=== PATIENT | female | born 1995 | race Caucasian/White ===

== ENCOUNTER 2016-06-02 06:00 | Inpatient (IN) ==
[2016-06-02] MEDS ORDERED: Metoclopramide 10 MG/2 ML VIAL IVP PRN (06:02)
[2016-06-02] MEDS ORDERED: Famotidine 20 MG/2 ML VIAL IVP PRN (06:02)
[2016-06-02] MEDS ORDERED: Naloxone 0.4 MG/ML INJ IVP PRN ×2 (06:02→22:07)
[2016-06-02] MEDS ORDERED: miSOPROStol 25 MCG TABLET VG PRN (06:02)
[2016-06-02] MEDS ORDERED: D5% in 0.45% NACL 1,000 ML IVC SCH (06:15)
[2016-06-02 07:28] LABS: Basophils % 0.3 %; Eosinophils # 0.1 K/mcL (0.0-0.6); Eosinophils % 0.5 %; Hematocrit 39.6 % (35.3-44.9); Hemoglobin 13.1 g/dL (11.5-15.4); Immature Granulocytes % 0.9 % (0-4); Lymphocytes # 2.4 K/mcL (0.6-4.6); Lymphocytes % 22.6 %; Mean Corpuscular HGB Conc 33.1 g/dL (31.6-35.5); Mean Corpuscular Hemoglobin 29.6 pg (28.0-33.3); Mean Corpuscular Volume 89.6 fL (83.0-100.0); Monocytes # 0.8 K/mcL (0.0-1.3); Monocytes % 7.5 %; Neutrophils # 7.2 K/mcL (1.6-8.9); Platelet Count 252 K/mcL (140-400); Red Blood Count 4.42 M/mcL (3.82-4.97); Red Cell Distribution Width 14.3 % (11.5-14.5); Segmented Neutrophils % 68.2 %
[2016-06-02] MEDS ORDERED: Ringers Solution, Lactated 1,000 ML ONE ×4 (08:13→19:08)
--- NOTE | 2016-06-02 08:44 | OB/GYN History & Physical ---
Date of Encounter: 06/02/16 Time of Encounter: 08:42 Assessment and Plan (1) 39 weeks gestation of Current visit: Yes Status: Acute IOL Cytotec 25mcg vaginally (2) Maternal varicella, non-immune Current visit: Yes Status: Acute Mother encouraged to repeat vaccine when appropriate History of Present Illness Chief complaint: Schedule IOL for gestational age greater than 39 weeks HPI: Ms. Odell is a 20 year old female 20 y/o at 39w1d presented to labor and delivery for scheduled IOL for gestational age greater than [address] Contreras. Cytotec 25mcg vaginally was placed per RN at 0641. Patient reports +FM and feeling irregular contractions. Denies LOF or VB. Blood type: A+, Rubella: Immune, Hep B: nonreactive, Varicella: Negative. GBS: negative Past Med Surg Social Fam HX - Past Medical History Medical history: no medical history Psychiatric history: no psych history - Social History Smoking Status: Never smoker Smokeless Tobacco Status: No Alcohol use: none Drug use: none - Family History Mother Living Status: Still Living Hx Family Cardiac Disorders: No Hx Family Respiratory Disorders: No Hx Family Cancer: No Hx Family GI Disorders: No Hx Family Genitourinary Disorders: No Hx Family Endocrine Disorder: No Hx Family Musculoskeletal Disorders: No Hx Family Neuromuscular Disorders: No Hx Family Neurologic Disorders: No Hx Family HEENT Disorders: No Hx Family Autoimmune Disorders: No Hx Family Reproductive Disorders: No Hx Family Psychosocial Disorders: No Hx Family Medical Disorders: No Obstetrical History - Pregnancies : 1 Para: 0 Term: 0 : 0 Ab's: 0 Livin Medications and Allergies Vit/Iron Fumarate/FA [ Tablet] 1 each PO DAILY 06/02/16 [ History] Allergies No Known Allergies Allergy (Verified 06/02/16 06:15) Review of System OB - Constitutional Constitutional ROS IM: no chills, no fever(s), no headache(s) - Cardiovascular Cardiovascular: pedal edema, no chest pain, no dyspnea, no leg edema, no lightheadedness, no palpitations, no syncope - Gastrointestinal Gastrointestinal: no abdominal pain, no constipation, no heartburn, no nausea, no vomiting - Genitourinary Genitourinary: no difficulty urinating, no dysuria, no flank pain, no urinary frequency, no vaginal discharge, no vaginal odor, no vaginal pruritis Exam - Constitutional Constitutional: well developed, well nourished, no acute distress, average body habitus - HEENT HEENT: Normocephaly, Mucus Membranes Moist - Neck Neck exam: full ROM, supple - Lungs Respiratory exam: CTAB - Cardiovascular Cardiovascular exam: RRR, +S1, +S2 - Abdomen Abdomen: Present: bowel sounds normal, gravid, non tender - Extremities Extremities exam: full ROM, normal capillary refill, normal inspection, pedal edema (1+ bilateral) Deep Tendon Reflex Grade: 2+ Normal - Cervix Dilation: 3 (Per Induction conset) Effacement: 60 Station: -1 - Comments Comments: FHR 125 bpm moderate variability +15x15 accels, contractions irregular. Results Result Diagrams: 06/02/16 06:35 Abnormal lab results MPV 9.0 fL (9.4-12.4) L 06/02/16 06:35 All other labs normal. - VTE Reasons for not Prescribing Prophylaxis: Treatment not Indicated - Low risk for VTE
--- NOTE | 2016-06-02 10:26 | OB Labor Progress Note ---
Date of Encounter: 06/02/16 Time of Encounter: 10:24 Labor Progress Note - Subjective Subjective: Patient resting in bed. Discussed POC with patient. Patient denies any questions or concerns. - Cervix Cervix: 4.5/90/-1 - Heart Tones Heart Tones: 135 bpm moderate variability +15x15 accels no decels noted. CAt. 1 tracing. - [place]: irregular - Interventions Interventions: SVE, AROM small amount of clear fluid. FSE placed due to difficulty monitoring baby. - Plan Plan: Continue labor management Epidural of nubain when desires for pain management Will start pitocin if needed for effective labor pattern.
[2016-06-02] MEDS ORDERED: EPHEDrine 50 MG/ML VIAL IVP PRN (10:27)
[2016-06-02] MEDS ORDERED: Ringers Solution, Lactated 500 ML IVC ONE (10:27)
[2016-06-02] MEDS ORDERED: Epidural Premix (fent/bupiv) 110 ML EP SCH (10:30)
[2016-06-02] MEDS ORDERED: Epidural Premix (fent/bupiv) 110 ML EP ONE ×3 (10:31→19:59)
--- NOTE | 2016-06-02 11:12 | Anesthesia Evaluation PreOp ---
Date of Encounter: 06/02/16 Time of Encounter: 11:10 - Past History Planned Operation: RM Cardiac History: Denies any Significant Hx Pulmonary History: Denies Any Significant HX LOGISTICS INTERN History: Denies Any Significant HX Other Medical History: Denies Any Significant HX Anesthesia History: No Prior Anesthetic Complications, Past Anesthesia : Yes Alcohol Use: none Drug use: none Medications and Allergies Vit/Iron Fumarate/FA [ Tablet] 1 each PO DAILY 06/02/16 [ History] Allergies No Known Allergies Allergy (Verified 06/02/16 06:15) - Meds/Allergy Pre-op Review Medications Reviewed: Yes Allergies Reviewed: Yes Beta Blockers on Current Med List: No Anesthesia Results - Labs 06/02/16 06:35 Anesthesia Exam Height: 5'1" Weight: 104kg NPO (# of Hours): 8 Pain Scale: 8 Pain Scale Used: Numeric (1 - 10) - HEENT Pupil (Motor): Pupils equal Mallampati: II Teeth: Normal Oral Opening: Greater than 3 - LOGISTICS INTERN LOC: Oriented LOGISTICS INTERN Motor: Normal RUE, Normal LUE, Normal RLE, Normal LLE, Normal Face LOGISTICS INTERN Sensory: Normal: RUE, LUE, RLE, LLE, Face - Cardiac Rhythm: Regular Murmur: None JVD: No Carotid Bruit: No - Pulmonary Breath Sounds: bilateral Clear Respiratory Effort: Symmetrical Anesthesia Assess/Plan ASA Score: 3 Modified Shahab Scale for Level of Consciousness: Cooperative, oriented, and tranquil Anesthetic Plan: General (plan b), Regional (plan a) Autologous Blood: Yes Monitoring Plan: Standard Monitors
--- NOTE | 2016-06-02 11:14 | Anesthesia Procedures ---
Date of Encounter: 06/02/16 Time of Encounter: 11:12 Procedures: Anesthesia - Epidural/Spinal Patient ID/Chart reviewed: Yes Patient examined: Yes OB Eval: Gestational age: 39.1 OB Eval: : 1 OB Eval: Hx Para: 0 OB Eval: Dilated at (cm): 5 OB Eval: Contractions: Non-stressed pattern Consent Obtained: No Supplemental Oxygen: None/Room Air Site Prep: Aseptic Technique, Sterile prep and drape, Povidone-Iodine 1% Patient position: upright Local Anesthetic: Lidocaine 1% Amount of Local Anesthetic used: 3 Touhy Needle Gauge: 18 Touhy Needle Depth (cm): 10 Catheter Depth at Skin (cm): 20 Test Dose (1.5% Lido + Epi): Volume given (mls): 5 Test Dose Result: Negative Loading Dose: Other: 5ml premix pharm bag solution Loading Dose Administered: Thru Catheter Infusion Med: 0.125% Bupivacaine w/ 2 mcg/ml Fentanyl Infusion Rate (mls/hr): 12 ([id number] [id number]) Catheter Secured in Place: Tegaderm, Tape Interspace Used: L3-L4 Loss of Resistance (BELA): Yes Blood: No CSF: No Paresthesia: No Procedure: pt tolerated procedure well. no complications. vss. fhr stable. 140/65 hr 80 134/64 hr 90 fhr 129, 130, 131
[2016-06-02] MEDS ORDERED: Oxytocin 20 units/ LR 1000 mL 20 UNIT/1,000 ML BAG IVC SCH (11:15)
--- NOTE | 2016-06-02 12:45 | Anesthesia Progress Note ---
Date of Encounter: 06/02/16 Time of Encounter: 12:43 Anesthesia Note - Note Note: 06/02/16 12:43 pt seen and evaluated post epidural pump start. increased pain on the left side with contractions. pt turned to the left side. rate increased to 14ml/hr and bolus dose increased to 4ml q15min pcea. pt comfortable at this time.
[2016-06-02] MEDS ORDERED: Lidocaine/EPI 1:200k 2% PF 20 ML VIAL ONE (15:02)
[2016-06-02] MEDS ORDERED: *HR* FentaNYL (PF) 100 MCG/2 ML VIAL ONE ×2 (15:02→16:58)
--- NOTE | 2016-06-02 15:13 | Anesthesia Progress Note ---
Date of Encounter: 06/02/16 Time of Encounter: 15:12 Anesthesia Note - Note Note: 06/02/16 15:12 called for increased pain during contractions. pump increased to 18ml/hr. 8ml 2 % lidocaine with epi given with 100mcg fentanyl.
--- NOTE | 2016-06-02 15:59 | OB Labor Progress Note ---
Date of Encounter: 06/02/16 Time of Encounter: 15:56 Labor Progress Note - Subjective Subjective: Patient resting reports mild low back pain and pressure. Bradford catheter draining clear yellow urine. - Cervix Cervix: 7/90/-1 - Heart Tones Heart Tones: 135 bpm moderate variability +15x15 accels variables noted prior to SVE and repositioning. - [place]: 2-3 min apart - Interventions Interventions: SVE, Repositioning - Plan Plan: Continue labor management.
--- NOTE | 2016-06-02 17:07 | Anesthesia Progress Note ---
Date of Encounter: 06/02/16 Time of Encounter: 17:04 Anesthesia Note - Note Note: 06/02/16 17:04 called for increased pain with contractions. rate increased to 20ml/hr. 5ml q 10min pcea. vss. fhr stable. bolus given 7ml 2%lidocaine with epi. 100mcg fentanyl. 06/02/16 17:07
--- NOTE | 2016-06-02 17:35 | OB Labor Progress Note ---
Date of Encounter: 06/02/16 Time of Encounter: 17:33 Labor Progress Note - Subjective Subjective: Patient vomiting, FHR decel noted on monitor. Patient denies any pain just feels nauseated. - Cervix Cervix: 9.5/100/0 - Heart Tones Heart Tones: 140 bpm moderate variability prolonged decels noted + scalp stimulation with SVE - [place]: 2-3.5 min apart - Interventions Interventions: SVE, repositioned. Pitocin off, O2 mask applied at 10 liters. - Plan Plan: Continue labor management.
[2016-06-02] MEDS ORDERED: Famotidine 20 MG/2 ML VIAL IVP ONE (21:18)
[2016-06-02] MEDS ORDERED: Metoclopramide 10 MG/2 ML VIAL IVP ONE (21:18)
[2016-06-02] MEDS ORDERED: CeFAZolin Pre 3,000 MG/100 ML 3,000 MG/100 ML BAG IVPB ONE (21:18)
[2016-06-02] MEDS ORDERED: Chloroprocaine/PF 20 ML VIAL INFILT ONE (21:21)
[2016-06-02] MEDS ORDERED: *HR* Succinylcholine 200 MG/10 ML VIAL IVP ONE (21:24)
[2016-06-02] MEDS ORDERED: *HR* Oxytocin 10 UNIT/ML VIAL IM ONE (21:27)
[2016-06-02] MEDS ORDERED: Ringers Solution, Lactated 1,000 ML IVC SCH (21:30)
[2016-06-02] MEDS ORDERED: Ondansetron 4 MG/2 ML VIAL ONE (21:54)
[2016-06-02] MEDS ORDERED: *HR* HYDROmorphone (PF) 1 MG/ML SYRINGE ONE (21:54)
[2016-06-02] MEDS ORDERED: Dexamethasone 4 MG/ML VIAL ONE (21:54)
[2016-06-02] MEDS ORDERED: Ondansetron 4 MG/2 ML VIAL IVP ONE (22:07)
[2016-06-02] MEDS ORDERED: *HR* Meperidine 50 MG/ML SYRINGE IVP PRN (22:07)
[2016-06-02] MEDS ORDERED: *HR* Labetalol 100 MG/20 ML MDV IVP PRN (22:07)
[2016-06-02] MEDS ORDERED: Albuterol 2.5 MG/3 ML NEBULIZER IH ONE (22:07)
[2016-06-02] MEDS ORDERED: *HR* Labetalol 20 MG/4 ML SYRINGE IVP PRN (22:15)
--- NOTE | 2016-06-02 22:29 | OB/GYN Procedure Note ---
Section - Date of procedure: 06/02/16 Preop diagnosis: arrest of descent, category 2 FHT tracing Post-op diagnosis: same Procedure: primary low transverse Surgeon: Gracie Contreras Estimated blood loss (cc): 500 Anesthesiologist: Maria Eugenia Carvajal Client Relationship Manager: Peterson Smith Anesthesia Type: General section complications: none Disposition: L&D Recovery Room Specimens: Placenta - Infant (s) A Infant Delivery Date: 06/02/16 Infant Delivery Time: 21:51 Presentation: vertex Position: ROP Route of delivery: other Gender: Female Viability: Viable Pounds: 6 Ounces: 0 Gram Weight: 2710 kg at 1 minute: 7 at 5 minutes: 9 Placenta: complete extraction Cord: nuchal cord, 3 umbilical vessels - Narrative Narrative: Called to evaluate pt. for Section for secondary arrest of descent and non-reassuring heart tracing with deep variable decels. Pt. and family comfortable with decision to proceed with C/S. Informed consent obtained. Patient was taken to recovery room placed in supine position and the skin was prepped and draped with usual sterile fashion a timeout procedure was performed in a general anesthetic was administered. A Pfannenstiel incision was performed and carried down to the fascial layer into the abdominal cavity was entered. A bladder flap was then created with sharp dissection. A low transverse uterine incision was then performed and extended bilaterally with bandage scissors. A viable female infant was then delivered from a vertex presentation with right occiput posterior position with scores of 7 and 9 at one and 5 minutes respectively, and the weighed 6 pounds. A nuchal cord 1 was present was easily reduced. The cord was clamped and cut and the infant was handed to the nursery team. The placenta was then manually removed. The uterine cavity was wiped clean with wet lap sponge. The uterine incision was closed in a layered fashion with 0 Vicryl suture in a running locking fashion. Both tubes and ovaries were visualized with no abnormalities noted. Good hemostasis was present at this point. The paracolic gutters were then gently wiped clean with a wet lap sponge. Again good hemostasis was present. The fascial layer was closed with 0 PDS strata fix suture in a running nonlocking fashion. Subcutaneous layer was irrigated with sterile water and closed with 4-0 Vicryl suture in a running nonlocking fashion, continuing close the skin edges in a running subcuticular fashion. A piece of Dermabond mesh was then placed over the incision site. Patient followed procedure well, all sponge needle and is counts reported as correct. Estimated blood loss was 500 mL and the urine in Bradford catheter was clear and yellow. She was taken recovery room in stable condition.
[2016-06-02] MEDS: *HR* HYDROmorphone (PF) 1 MG/ML SYRINGE IVP PRN (23:08)
--- NOTE | 2016-06-02 23:29 | Anesthesia Evaluation Post Op ---
Date of Encounter: 06/02/16 Time of Encounter: 23:28 - Lungs Lungs: Clear Ascult./Percussion - Airway Airway: Non-obstructed - Cardiovascular Regular Rate, Baseline Rhythm - Mental Status Mental Status: Asleep with brisk response to light stimulation - Pain Pain Scale: 5 Pain Scale used: Numeric (1 - 10) - Nausea Vomiting Nausea Vomiting: Not Present - Hydration Hydration: NPO, Bradford catheter - Discharge PostOp Status: Transfer Patient to floor
[2016-06-03] MEDS: *HR* HYDROmorphone (PF) 1 MG/ML SYRINGE IVP PRN (00:18)
[2016-06-03] MEDS ORDERED: Ondansetron 4 MG/2 ML VIAL IVP PRN (00:41)
[2016-06-03] MEDS ORDERED: Naloxone 0.4 MG/ML INJ IVP PRN (00:41)
[2016-06-03] MEDS ORDERED: Simethicone 80 MG TAB.CHEW PO PRN (00:41)
[2016-06-03] MEDS ORDERED: Ringers Solution, Lactated 1,000 ML IVC SCH (00:41)
[2016-06-03] MEDS ORDERED: Acetaminophen 325 MG TABLET PO PRN (00:41)
[2016-06-03] MEDS ORDERED: Sennosides 8.6 MG TABLET PO PRN (00:41)
[2016-06-03] MEDS ORDERED: Metoclopramide 10 MG/2 ML VIAL IVP PRN (00:41)
[2016-06-03] MEDS ORDERED: *HR* HYDROmorphone 20 MG/20 ML PCA IVC PRN (00:41)
[2016-06-03] MEDS: Oxytocin 20 units/ LR 1000 mL 20 UNIT/1,000 ML BAG IVC SCH ×2 (00:55→09:30)
[2016-06-03 07:00] LABS: Basophils % 0.1 %; Hematocrit 32.5 % (35.3-44.9); Immature Granulocytes % 0.6 % (0-4); Lymphocytes # 1.2 K/mcL (0.6-4.6); Lymphocytes % 6.3 %; Mean Corpuscular HGB Conc 34.2 g/dL (31.6-35.5); Mean Corpuscular Hemoglobin 30.7 pg (28.0-33.3); Mean Corpuscular Volume 89.8 fL (83.0-100.0); Monocytes # 0.8 K/mcL (0.0-1.3); Monocytes % 4.2 %; Neutrophils # 16.9 K/mcL (1.6-8.9); Platelet Count 215 K/mcL (140-400); Red Blood Count 3.62 M/mcL (3.82-4.97); Red Cell Distribution Width 14.5 % (11.5-14.5); Segmented Neutrophils % 88.8 %
[2016-06-03 07:01] LABS: Hemoglobin 11.1 g/dL (11.5-15.4)
[2016-06-03] MEDS: Prenatal Vit/FA 1 EACH TABLET PO SCH (09:03)
--- NOTE | 2016-06-03 09:54 | OB/GYN Progress Note ---
Date of Encounter: 06/03/16 Time of Encounter: 09:51 - Assessment and Plan (1) 39 weeks gestation of Current Visit: Yes Status: Acute IOL Cytotec 25mcg vaginally (2) Maternal varicella, non-immune Current Visit: Yes Status: Acute Mother encouraged to repeat vaccine when appropriate (3) Status post primary low transverse section Current Visit: Yes Status: Acute Continue routine postop/ care chirinos catheter out 12 hours post surgery Discontinue SYSTEM DEVELOPER ASSOCIATE MANAGER when tolerating PO Subjective - Subjective Principal diagnosis: Postop/ day 1 primary c/s Interval history: Patient resting in bed skin to skin with . Infant is currently bottle feeding but patient would like to breast feed. SYSTEM DEVELOPER ASSOCIATE MANAGER at this time for pain control. Will discontinue SYSTEM DEVELOPER ASSOCIATE MANAGER when tolerating PO medication. Patient reports pain is well controlled. Patient reports: pain well controlled, other (Chirinos catheter draining clear yellow urine. ) : doing well Objective - Vital Signs Latest vital signs: Vital Signs Temp Pulse Pulse Resp BP Pulse Ox 06/03/16 09:05 98.3 F 118 16 138/83 06/03/16 04:08 97.6 F 3 93 14 128/83 94 06/03/16 03:06 97.7 F 87 87 14 129/84 95 06/03/16 02:03 97.8 F 87 87 14 120/83 95 06/03/16 01:33 98.1 F 95 95 14 137/83 96 06/03/16 01:00 98.5 F 101 101 16 135/84 96 Intake and Output 06/02/16 06/03/16 06/03/16 23:59 07:59 15:59 Intake Total 0 / 0 1000 / 1000 Output Total 1250 / 1250 500 / 500 Balance -1250 / -1250 -500 / -500 1000 / 1000 Intake: IV Fluids 1000 / 1000 Pitocin 20 unit In 1,000 1000 / 1000 ml @ 125 mls/hr IVC .Q8H [facility] Rx#:[id number] Oral 0 / 0 Output: Catheter 1250 / 1250 500 / 500 Other: Weight 103.147 kg Patient Weight 06/03/16 23:59 Weight 103.147 kg - Exam Lungs: bilateral: normal Chest: Normal S1, Normal S2 Extremities: Present: normal Abdomen: Present: normal appearance, soft Incision: Present: normal, dry, intact, dressed Uterus: Present: normal, firm Fundal Height: 2 (U/2) - Labs Labs: Laboratory Results - last 24 hr 06/03/16 06:25 WBC 19.0 H D RBC 3.62 L Hgb 11.1 L D Hct 32.5 L MCV 89.8 MCH 30.7 MCHC 34.2 RDW 14.5 Plt Count 215 MPV 9.0 L Immature Gran % 0.6 Seg Neutrophils % 88.8 Lymphocytes % 6.3 Monocytes % 4.2 Eosinophils % 0.0 Basophils % 0.1 Neutrophils # 16.9 H Lymphocytes # 1.2 Monocytes # 0.8 Eosinophils # 0.0 Basophils # 0.0
[2016-06-03] MEDS: *HR* OxyCODONE/APAP 5/325 TABLET PO PRN ×3 (14:35→20:24)
[2016-06-03] MEDS: Ibuprofen 600 MG TABLET PO PRN ×2 (15:11→22:00)
[2016-06-03] MEDS ORDERED: *HR* HYDROmorphone 2 MG/ML SYRINGE IVP ONE (16:02)
[2016-06-04] MEDS: *HR* OxyCODONE/APAP 5/325 TABLET PO PRN ×3 (04:19→13:13)
--- NOTE | 2016-06-04 08:03 | OB/GYN Progress Note ---
Date of Encounter: 06/04/16 Time of Encounter: 07:58 (Pt. seen and examined. Agree with plan of care) - Assessment and Plan (1) Status post primary low transverse section Current Visit: Yes Status: Acute pain controlled at this time afebrile and stable vital signs continue routine postop/ care anticipate discharge tomorrow Subjective - Subjective Principal diagnosis: POD 2 Primary C/S Interval history: Patient seen and examined. She is resting comfortably and is eating her meal at bedside. Mother would like to breast-feed but reports decreased milk production. Has been supplementing with bottle. Reports baby girl has been latching without difficulty. instructional specialist has been assisting patient during stay. Pain is well-controlled at this time. Reports up and moving around yesterday. Lower extremities remain swollen. Good urine production. Bradford out yesterday, denies any urinary complaints. Patient denies any other complaints such as cough, shortness of breath, chest pain, nausea, or vomiting. However, denies flatus or bowel movement at this time. Patient reports: appetite normal, pain well controlled, ambulating normally [place]: doing well, other (attempting , latching but decreased milk production, supplementing with bottle), bottle feeding Objective - Vital Signs Latest vital signs: Vital Signs Temp Pulse Resp BP Pulse Ox 06/03/16 20:00 98.2 F 96 16 117/80 97 06/03/16 17:42 16 06/03/16 17:00 98.2 F 110 18 121/77 96 06/03/16 09:05 98.3 F 118 16 138/83 06/03/16 08:03 98.4 F 106 18 122/77 96 Intake and Output 06/03/16 06/03/16 06/04/16 15:59 23:59 07:59 Intake Total 1438 / 1438 Output Total 525 / 525 1400 / 1400 200 / 200 Balance 913 / 913 -1400 / -1400 -200 / -200 Intake: IV Fluids 1438 / 1438 Pitocin 20 unit In 1,000 1000 / 1000 ml @ 125 mls/hr IVC .Q8H [facility] Rx#:[id number] Output: Urine 1400 / 1400 200 / 200 Catheter 525 / 525 Other: # Voids 1 Weight 102.5 kg Patient Weight 06/04/16 23:59 Weight 102.5 kg - Exam Lungs: bilateral: normal Chest: Normal S1, Normal S2 Extremities: Present: edema (symmetrical bilaterally). Absent: tenderness Abdomen: Present: normal appearance, soft. Absent: rigidity, distention, tenderness Incision: Present: normal, dry, intact. Absent: erythematous, suppurative, skin Uterus: Present: normal, firm Fundal Height: 2 (U/2)
[2016-06-04] MEDS: Prenatal Vit/FA 1 EACH TABLET PO SCH (08:15)
[2016-06-04] MEDS ORDERED: MOM Conc 10 ML UD.LIQ PO PRN (10:04)
[2016-06-04] MEDS: Ibuprofen 600 MG TABLET PO PRN ×2 (11:46→17:55)
[2016-06-04] MEDS ORDERED: Lanolin 7 G OINT...G. TP PRN (17:59)
--- NOTE | 2016-06-05 08:11 | Discharge Summary ---
Date of Encounter: 06/05/16 Time of Encounter: 08:04 - Discharge Diagnosis (1) Status post primary low transverse section Priority: Primary Status: Acute Comments: Pt reports adequate pain control with PO medication. She is tolerating a regular diet and passing flatus, ambulating without difficulty, voiding spontaneously. She is breast and bottle feeding and desires discharge home today. (2) Mother currently breast-feeding Priority: Secondary Status: Acute - Discharge Medications Prescriptions: OxyCODONE/APAP 5/325 [Percocet 5/325 MG] 1 each PO Q4HR PRN #30 tablet PRN Reason: Moderate pain 4-6 Ibuprofen [Motrin] 600 mg PO Q6HR PRN #60 tablet PRN Reason: Cramping Breast Pump [BREAST PUMP] 1 each .ROUTE AD #1 each Docusate [Colace] 100 mg PO BID #60 capsule Home Medications: Vit/Iron Fumarate/FA [ Tablet] 1 each PO DAILY 06/02/16 [ History] Breast Pump [BREAST PUMP] 1 each .ROUTE AD #1 each 06/05/16 [Rx] Docusate [Colace] 100 mg PO BID #60 capsule 06/05/16 [Rx] Ibuprofen [Motrin] 600 mg PO Q6HR PRN #60 tablet 06/05/16 [Rx] Lanolin [Lansinoh] 1 appl TP TID PRN #0 oint...g. 06/05/16 [Rx] OxyCODONE/APAP 5/325 [Percocet 5/325 MG] 1 each PO Q4HR PRN #30 tablet 06/05/16 [Rx] Simethicone [Gas-X] 80 mg PO TID PRN #0 tab.chew 06/05/16 [Rx] Allergies/Adverse Reactions: Allergies No Known Allergies Allergy (Verified 06/02/16 06:15) Data Procedures and tests throughout hospitalization: Laboratory Tests 06/02/16 06/03/16 06:35 06:25 WBC 10.5 19.0 H D RBC 4.42 3.62 L Hgb 13.1 11.1 L D Hct 39.6 32.5 L MCV 89.6 89.8 MCH 29.6 30.7 MCHC 33.1 34.2 RDW 14.3 14.5 Plt Count 252 215 MPV 9.0 L 9.0 L Immature Gran % 0.9 0.6 Seg Neutrophils % 68.2 88.8 Lymphocytes % 22.6 6.3 Monocytes % 7.5 4.2 Eosinophils % 0.5 0.0 Basophils % 0.3 0.1 Neutrophils # 7.2 16.9 H Lymphocytes # 2.4 1.2 Monocytes # 0.8 0.8 Eosinophils # 0.1 0.0 Basophils # 0.0 0.0 Date of admission: 06/02/16 06:00 Primary care physician: Rajeev Sexton Discharging clinician: Eun Murillo Anticipated date of discharge: 06/05/16 - Patient Status Disposition: Home, Self-Care Condition: Good Functional capacity at discharge: independent ambulation Overall status at discharge: patient is progressing back to baseline - Discharge Instructions Follow Up With: Rajeev Sexton DO [Primary Care Provider] - Gracie Contreras DO [Partnered Physician] - Additional Instructions: Perineal Care: Always wipe front to back Change your pad frequently Use your dayana bottle with warm water and spray front to back Do not douche, use tampons, have sexual intercourse or put anything in your vagina for 4-6 weeks after delivery Bleeding: Vaginal bleeding can last up to 6 weeks Your menstrual period may return as early as 6 weeks after you are discharged from the hospital Khanh/Stitches Care: Vaginal Delivery Vaginal stitches will dissolve within 4-6 weeks Follow perineal care instructions Care Stitches will dissolve on their own If you have khanh, they will need to be removed in the doctors office within 5-7 days. You may shower with stitches or khanh Drip plan or soapy water over the incision to clean. Pat dry gently with a clean towel. Make sure you completely dry under the skin folds DO NOT USE powders, lotions, rubbing alcohol or hydrogen peroxide on or around your incision. This will slow your wound healing It is normal to have soreness, burning, tingling, itchiness and/or numbness as your incision heals Activity: Rest frequently Do not lift anything heavier than a gallon of milk, up to 10-15 pounds No driving for 1-2 weeks for Vaginal delivery No driving for 2-4 weeks for delivery Take stairs slowly, one at a time Gradually increase your daily activity until you are back to your normal routine Do not exercise until you have had your follow-up appointment Bathing: Take a shower daily Do not take a tub bath for the first 4 weeks Diet: Drink plenty of water and fruit juices Eat a well-balanced diet with foods high in fiber such as fruits and vegetables Depression: Your hormones have a major impact on your feelings and emotions. Hormone imbalance may cause changes in your mood, creating unfamiliar thoughts and actions. Support is available to help you understand and cope with these feelings and mood changes. If you answer yes to any of the following questions, please call your health care provider: Are you having trouble sleeping? Are you feeling isolated? Have you lost your appetite? Are you having thoughts of hurting yourself or others? WARNING SIGNS: Heavy bleeding from the vagina (blood is bright red and soaks a sanitary pad in an hour or less.) Passing a blood clot larger than your fist Discharge from the vagina that has a bad odor Temperature over 100.4 F, or if you feel cold and have chills An episiotomy site that is warm, swollen or oozing. Use a mirror if needed Urination (pee) that is painful, very red and swollen or leaking fluid An incision that is painful, very red and swollen and leaking fluid An incision that has come open Breasts that are painful or full with flu like symptoms Redness, warmth or swelling in the calf of your leg Trouble breathing, dizziness, visual disturbance or faintness *Notify your health care provider immediately or go to the nearest Emergency Room if you experience any of the above signs.* To contact the nurses station 24 hours a day, For non-urgent, routine questions, please call the office at - Diet and Activity Activity: increase activity as tolerated Diet: regular diet Hospital Course Reason for admission: induction of labor Delivery: section Episiotomy: none Laceration: none Other procedures: none complications: none Discharge diagnosis: IUP at term delivered [place] baby: female Hospital course: - Date of procedure: 06/02/16 Preop diagnosis: arrest of descent, category 2 FHT tracing Post-op diagnosis: same Procedure: primary low transverse Surgeon: Gracie Contreras Estimated blood loss (cc): 500 Anesthesiologist: Maria Eugenia aCrvajal Reel System Operator: Peterson Smith Anesthesia Type: General section complications: none Disposition: L&D Recovery Room Specimens: Placenta - Infant (s) A Infant Delivery Date: 06/02/16 Delivery Time: 21:51 Presentation: vertex Position: ROP Route of delivery: other Gender: Female Viability: Viable Pounds: 6 Ounces: 0 Gram Weight: 2710 kg at 1 minute: 7 at 5 minutes: 9 Placenta: complete extraction Cord: nuchal cord, 3 umbilical vessels Time Attestation: Total time spent providing and/or coordinating discharge services: Time Spent: Less than 30 minutes - VTE Reasons for not Prescribing Prophylaxis: Treatment not Indicated - Low risk for VTE Documentation of Mechanical Device: Intermittent pneumatic compression device Exam - Constitutional Vitals: Temp Pulse Resp BP Pulse Ox 97.9 F 100 16 140/82 97 06/04/16 20:10 06/04/16 20:10 06/04/16 20:10 06/04/16 20:10 06/04/16 20:10 General appearance IM: A&O X 3, pleasant, no acute distress - Respiratory Respiratory exam: Present: CTAB - Cardiovascular Cardiovascular exam IM: Present: RRR, +S1, +S2 - GI/Abdominal GI/Abdominal exam IM: soft, no peritoneal signs Incision: dry, intact Additional comments: no s/sx infection - Uterine Tone: Firm Uterus Position: 2 Fingers Below Umbilicus - Extremities Exam Extremities exam IM: Present: pedal edema (1+ edema bilaterally). Absent: tenderness, warm - Neurological Exam Neurological exam: normal gait, oriented X3 - Psychiatric Additional comments: reports good mood - Other Additional findings: OARRS reviewed
[2016-06-05 09:53] VITALS: BP 130/75
[2016-06-05] MEDS: Prenatal Vit/FA 1 EACH TABLET PO SCH (09:53)
[2016-06-05] MEDS: *HR* OxyCODONE/APAP 5/325 TABLET PO PRN ×2 (09:53→14:36)
== END 2016-06-05 15:07 | disposition home or self-care (01) | DRG 540 ==
LOC: 1NENULAB 06:00 → 1NENUOBS 06-03 00:40